=== PATIENT | male | born 1945 | race Caucasian/White ===

== ENCOUNTER → 2018-02-08 | Outpatient (REF) | payer MEDICARE ==
[~2018-02-08] MED LIST: CALC250T7 PO; CEP500 PO; FERR325T24 PO; GLUC-158 PO; IRON150C19 PO; LORA-629 PO; LUTE1CAP PO; MULT1CAP59 PO; VALS40TA6 PO
[2018-02-08 12:57] LABS: PLATELET COUNT, AUTOMATED 447 K/uL (150-450)
== END ==
LOC: ZZSENDIN 12:23
PROVIDERS: ATTEND Physician Assistant
DX: D64.9 Anemia, unspecified (principal)
CPT/HCPCS: 82728; 83540; 85025

== ENCOUNTER → 2018-02-12 | Outpatient (CLI) | payer MEDICARE | LOC: US 00:16 | PROVIDERS: ATTEND Physician Assistant | DX: I45.10 Unspecified right bundle-branch block (principal); R06.02 Shortness of breath | CPT/HCPCS: 93017; 93350 ==